=== PATIENT | male | born 1945 | race Caucasian/White ===

== ENCOUNTER 2021-03-04 10:06 | Emergency (ER) | payer MEDICARE, OTHER ==
--- NOTE | 2021-03-04 11:22 | CT ---
DATE OF SERVICE: 03/04/21 CLINICAL DATA: Headache after falling yesterday. UNENHANCED BRAIN CT: Multislice axial acquisition was performed. There is mild diffuse cerebral atrophy. There are periventricular lucencies bilaterally consistent with small vessel ischemic change. No masses or mass effect. No intracranial hemorrhage. No evidence of acute or subacute infarct. No osseous abnormalities. IMPRESSION: No acute intracranial abnormalities. [id number] [facility]
[2021-03-04] MEDS ORDERED: Ketorolac 60 MG/2 ML SDV IM ONE (11:40)
[2021-03-04] MEDS ORDERED: Ketorolac 60 MG/2 ML SDV ONE (11:48)
--- NOTE | 2021-03-04 11:49 | EDM.PDOC ---
ED HPI GENERAL MEDICAL PROBLEM - General Chief Complaint: Neck Problem Stated Complaint: FALL WITH HEAD AND NECK INJURY Time Seen by Provider: 03/04/21 10:15 - History of Present Illness INITIAL COMMENTS - FREE TEXT/NARRATIVE: Pt fell yesterday on his deck. He tells me he stood up and lost his balance. He has a H/A today and neck pain on the back and both sides. He had no LOC. Denies nausea, vomiting or visual changes today. Denies chest pain, coughing, or SOB. He has Hx of dizziness for over 1 yr. He has never had it evaluated. No Hx of CAD. Neck Pain Score (Numeric/FACES): 9 - Related Data Allergies Allergy/AdvReac Type Severity Reaction Status Date / Time naproxen sodium [From Aleve] Allergy Swollen Verified 12/02/13 10:07 Eyes Home Meds: Home Meds Acetaminophen/HYDROcodone [[place] 325-5 MG] 1 - 2 tab PO Q6H PRN 12/02/13 [History] Amoxicillin/Potassium Clav [Augmentin 875-125 Tablet] 1 each PO DAILY 12/02/13 [History] Docusate Sodium [Colace] 100 mg PO DAILY 12/02/13 [History] FLUoxetine [PROzac] 40 mg PO DAILY 12/02/13 [History] Ibuprofen [Motrin] 200 mg PO Q6H PRN 12/02/13 [History] Lisinopril 5 mg PO DAILY 12/02/13 [History] atorvaSTATin [Lipitor] 40 mg PO BEDTIME 12/02/13 [History] buPROPion HCl [Wellbutrin Xl] 150 mg PO DAILY 12/02/13 [History] glipiZIDE [Glucotrol XL] 10 mg PO DAILY 12/02/13 [History] Past Medical History Cardiovascular History: Reports: High Cholesterol, Hypertension Genitourinary History: Reports: BPH Psychiatric History: Reports: Depression Endocrine/Metabolic History: Reports: Diabetes, Type II Social & Family History - Family History Family Medical History: No Pertinent Family History - Tobacco Use Tobacco Use Status *Q: Current Every Day Tobacco User Years of Tobacco use: 10 Packs/Tins Daily: 0.5 - Caffeine Use Caffeine Use: Reports: Coffee - Recreational Drug Use Recreational Drug Use: No ED ROS GENERAL - Review of Systems Review Of Systems: Comprehensive ROS is negative, except as noted in HPI. HEENT: Reports: Other (nose swelling and bruising.) Musculoskeletal: Reports: Neck Pain Neurological: Reports: Headache ED EXAM, HEAD INJURY - Physical Exam Exam: See Below Text/Narrative:: Pt is awake and alert. No respiratory distress. V.S. are reviewed BP 142/79 - T 97 - p81 - sats 98% RA. Head: Other (Pt's nose is swollen on the distal end with superficial abrasions over the tip camille 2 cm in size.) Eyes: Bilateral Eye: EOMI, PERRL Neck: Other (Tender to palpation on both sides and back of neck. No swelling noted. skin is intact.) #1 Interpretation EKG Date: 03/04/21 Time: 11:00 Course - Vital Signs Last Recorded V/S: Last Vital Signs Temp 97.0 F 03/04/21 10:15 Pulse 88 03/04/21 10:34 Resp 18 03/04/21 10:15 BP 106/68 03/04/21 10:34 Pulse Ox 98 03/04/21 10:34 - Orders/Labs/Meds Orders: Active Orders 24 hr Category Date Time Status Cervical Spine wo Cont [CT] Stat Exams 03/04/21 10:31 Ordered Labs: Laboratory Tests 03/04/21 03/04/21 03/04/21 Range/Units 10:28 10:28 10:36 WBC 8.7 D (4.0-11.0) K/uL RBC 4.27 L (4.50-6.50) M/uL Hgb 14.0 (13.0-18.0) g/dL Hct 41.9 (40.0-54.0) % MCV 98 H (76-96) fL MCH 32.8 H (27.0-32.0) pg MCHC 33.4 (31.0-35.0) g/dL RDW 12.8 (11.0-16.0) % Plt Count 178 (150-400) K/uL MPV 9.5 (6.0-10.0) fL Neut % (Auto) 85.8 H (45.0-70.0) % Lymph % (Auto) 5.9 L (20.0-40.0) % Hemphill % (Auto) 7.7 (3.0-10.0) % Eos % (Auto) 0.5 L (1.0-5.0) % Baso % (Auto) 0.1 (0.0-0.5) % Neut # (Auto) 7.50 (2.00-7.50) K/uL Lymph # (Auto) 0.52 L (1.50-4.00) K/uL Hemphill # (Auto) 0.67 (0.20-0.80) K/uL Eos # (Auto) 0.04 (0.04-0.40) K/uL Baso # (Auto) 0.01 L (0.02-0.10) K/uL Sodium 139 (136-145) mmol/L Potassium 4.1 (3.5-5.1) mmol/L Chloride 104 (98-107) mmol/L Carbon Dioxide 27.3 (21.0-32.0) mmol/L Anion Gap 11.8 (5.0-15.0) mmol/L BUN 14 (8-26) mg/dL Creatinine 0.78 D (0.70-1.30) mg/dL Est Cr Clr Drug Dosing 87.09 mL/min Estimated GFR (MDRD) > 60 (>60) MLS/MIN BUN/Creatinine Ratio 17.9 (6-25) Glucose 156 H (74-100) mg/dL Calcium 9.3 (8.5-10.1) mg/dL Total Bilirubin 0.8 D (0.0-1.0) mg/dL AST 28 (15-37) U/L ALT 63 (12-78) U/L Alkaline Phosphatase 95 (46-116) U/L Total Protein 6.8 (6.4-8.2) g/dL Albumin 3.7 (3.4-5.0) g/dL Globulin 3.1 (2.2-4.2) g/dL Albumin/Globulin Ratio 1.2 (0.8-2.0) TSH, Ultra Sensitive 0.015 L D (0.358-3.740) uIU/mL Meds: Medications Discontinued Medications Generic Name Dose Route Start Last Admin Trade Name Freq PRN Reason Stop Dose Admin Ketorolac Tromethamine Confirm 03/04/21 11:48 Ketorolac 60 Mg/2 Ml Sdv Administered 03/04/21 11:49 Dose 60 mg .ROUTE .STK-MED ONE Ketorolac Tromethamine 60 mg 03/04/21 11:40 Ketorolac 60 Mg/2 Ml Sdv IM 03/04/21 11:41 ONETIME ONE - Re-Assessments/Exams Free Text/Narrative Re-Assessment/Exam: 03/04/21 11:51 Orthostatic BP dropped 20 points to 108 systolic. Labs are ok. CT scans of head and neck are negative for any acute changes or injury. Toradol will be given here. Pt will stop taking his Lisinopril - they will bring in an updated med list to day. He is to use Tylenol alternating with Motrin q 3 hours, wean down slowly as tolerated. Change positions slowly and carefully to monitor dizziness. He should follow up in the clinic in a few days. Follow up here sooner as needed. Departure - Departure Time of Disposition: 11:40 Disposition: Home, Self-Care 01 Condition: Good Clinical Impression: Hypotension Qualifiers: Hypotension type: unspecified hypotension type Qualified Code(s): I95.9 - Hypotension, unspecified Closed head injury Qualifiers: Encounter type: initial encounter Qualified Code(s): S09.90XA - Unspecified injury of head, initial encounter - Discharge Information *PRESCRIPTION DRUG MONITORING PROGRAM REVIEWED*: Yes *COPY OF PRESCRIPTION DRUG MONITORING REPORT IN PATIENT DARIN: No Instructions: Orthostatic Hypotension Referrals: PCP,None [Primary Care Provider] - Forms: ED Department Discharge Additional Instructions: Discharge home. Stop taking all blood pressure medications. Alternate Tylenol 1000mg by mouth and ibuprofen 600mg to 800mg by mouth. Ice and heat. Follow up with primary care provider in a few days. Sepsis Event Note (ED) - Evaluation Sepsis Screening Result: No Definite Risk - Focused Exam Vital Signs: Vital Signs Temp Pulse Resp BP Pulse Ox 03/04/21 10:34 88 106/68 98 03/04/21 10:32 84 124/73 96 03/04/21 10:31 78 126/73 98 03/04/21 10:15 97.0 F 81 18 142/79 H 98 - My Orders Last 24 Hours: My Active Orders 03/04/21 10:31 Cervical Spine wo Cont [CT] Stat - Assessment/Plan Last 24 Hours: My Active Orders 03/04/21 10:31 Cervical Spine wo Cont [CT] Stat
--- NOTE | 2021-03-04 12:00 | CT ---
Date of Service: 03/04/21 Clinical Data: Neck pain after falling. CERVICAL SPINE CT: Multislice axial acquisition was performed. Axial images and sagittal and coronal reformations are reviewed. No priors. 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 No acute fracture or dislocation. No focal lytic or blastic bone lesions. there is degenerative disk disease throughout the cervical spine with disk space narrowing diffusely. There is facet joint hypertrophy throughout the cervical spine. There are degenerative changes involving the atlantoaxial articulation. The soft tissues are unremarkable. The visualized lung apices are clear. IMPRESSION: No acute abnormalities. Other findings are discussed above. [id number] [facility]
== END 2021-03-04 11:45 | disposition home or self-care (01) ==
LOC: LB.ED 10:06
DX: S00.33XA Contusion of nose, initial encounter (principal); I95.9 Hypotension, unspecified; E78.00 Pure hypercholesterolemia, unspecified; I10 Essential (primary) hypertension; E11.9 Type 2 diabetes mellitus without complications; Z88.5 Allergy status to narcotic agent; Z72.0 Tobacco use; Z79.899 Other long term (current) drug therapy; W18.39XA Other fall on same level, initial encounter
CPT/HCPCS: 36415; 70450; 72125; 80053; 84443; 85025; 93005; 96372; 99284; J1885